=== PATIENT | female | born 1945 | race Caucasian/White ===

== ENCOUNTER 2017-08-22 12:13 | Emergency (ER) | payer MEDICARE, OTHER ==
[2017-08-22 12:17] VITALS: BP 146/65; PULSE 98; RESP 22; TEMP 98; O2SAT 98
--- NOTE | 2017-08-22 12:24 | PD ---
HPI Chief Complaint: Respiratory Symptoms Time Seen by Provider: 12:23 Travel History International Travel<30 days: No Contact w/Intl Traveler<30days: No Traveled to known affect area: No History of Present Illness HPI 72 YO F with PMH of COPD presents to the ED for evaluation of 1 week history of worsening cough, dyspnea on exertion and decreased O2 sats. The patient does not use oxygen at home. She notes that her cough is productive of light yellow sputum. She states that when she coughs in the morning her O2 sats dropped but if she is able to bring up a small amount of sputum that they return to approximately 92%. She states her normal O2 sats are 94% and above. She denies hemoptysis, fever, chills, chest pain, palpitations, abdominal pain, nausea, vomiting, dysuria, lower extremity edema. She notes a pain in her right shoulder blade which she states is similar to an episode of PNA last year. The patient states that she was in multiple health care settings recently with her mother who . She states that she has a nodule in each long which is being followed by her television newscast director, Dr. Juarez. She states her last CT was in February. PFSH Past Medical History Hx Anticoagulant Therapy: Yes (81 mg ASA daily) Social History Tobacco Use: No Allergies-Medications (Allergen,Severity, Reaction): Coded Allergies: Penicillins (Verified Allergy, Intermediate, 08/22/17) rash codeine (Verified Adverse Reaction, Unknown, 08/22/17) nausea/vomiting Reported Meds & Prescriptions Reported Meds & Active Scripts Active Azithromycin 250 Mg Tab 250 Mg PO DIRECTED Take 2 tabs (500 mg) on day 1 then 1 tab daily x 4 days. Prednisone 20 Mg Tab 40 Mg PO DAILY Take 40 mg (2 tablets) daily for 5 days Reported Vitamin B-12 (Cyanocobalamin) 1,000 Mcg Tab 5,000 Mcg PO EVERY OTHER DAY Vitamin D-1000 (Cholecalciferol) 1,000 Unit Tab 1,000 Units PO EVERY OTHER DAY Aspirin 81 Mg Chew 81 Mg CHEW DAILY Ipratropium Neb (Ipratropium [place]) 0.5 Mg/2.5 Ml Amp 0.5 Mg NEB Q4HR NEB PRN Omeprazole 40 Mg Cap 40 Mg PO DAILY Pramipexole (Pramipexole Dihydrochloride) 0.25 Mg Tab 0.25 Mg PO HS Ventolin Hfa 18 GM Inh (Albuterol Sulfate) 90 Mcg/Act Aer 1 Puff INH Q4H PRN Symbicort Inh (Budesonide/Formoterol Fumarate) 80-4.5 Mcg/Act Aero 2 Puff INH Q12HR Metoclopramide (Metoclopramide HCl) 10 Mg Tab 10 Mg PO BID Trazodone (Trazodone HCl) 150 Mg Tablet 150 Mg PO HS Review of Systems Except as stated in HPI: all other systems reviewed are Neg Physical Exam Narrative GENERAL: Well-nourished, well-developed pleasant white female in no acute distress. SKIN: Focused skin assessment warm/dry. HEAD: Normocephalic. EYES: No scleral icterus. No injection or drainage. NECK: Supple, trachea midline. No JVD or lymphadenopathy. CARDIOVASCULAR: Regular rate and rhythm without murmurs, gallops, or rubs. RESPIRATORY: Breath sounds equal, coarse, with wheezes bilaterally. No accessory muscle use. GASTROINTESTINAL: Abdomen soft, non-tender, nondistended. Active bowel sounds. MUSCULOSKELETAL: No cyanosis, or edema. BACK: Nontender without obvious deformity. No CVA tenderness. Data Data Last Documented VS Vital Signs Date Time Temp Pulse Resp B/P (MAP) Pulse Ox O2 Delivery O2 Flow Rate FiO2 08/22/17 12:47 9 24 97 Nasal Cannula 2.00 08/22/17 12:30 08/22/17 12:17 98.0 Orders Orders Complete Blood Count With Diff (08/22/17 12:32) Comprehensive Metabolic Panel (08/22/17 12:32) B-Type Natriuretic Peptide (08/22/17 12:32) D-Dimer (08/22/17 12:32) Act Partial Throm Time (Ptt) (08/22/17 12:32) Prothrombin Time / Inr (Pt) (08/22/17 12:32) Magnesium (Mg) (08/22/17 12:32) Ckmb (Isoenzyme) Profile (08/22/17 12:32) Troponin I (08/22/17 12:32) Iv Access Insert/Monitor (08/22/17 12:32) Electrocardiogram (08/22/17 12:32) Ecg Monitoring (08/22/17 12:32) Oximetry (08/22/17 12:32) Chest, Single Ap (08/22/17 12:32) Sodium Chloride 0.9% Flush (Ns Flush) (08/22/17 12:45) Methylprednisolone So Succ Inj (Solumedr (08/22/17 12:45) Albuterol-Ipratropium Neb (Duoneb Neb) (08/22/17 12:45) Albuterol-Ipratropium Neb (Duoneb Neb) (08/22/17 14:30) Ed Discharge Order (08/22/17 15:32) Labs Laboratory Tests Test 08/22/17 13:00 White Blood Count 13.0 TH/MM3 Red Blood Count 4.45 MIL/MM3 Hemoglobin 13.7 GM/DL Hematocrit 41.3 % Mean Corpuscular Volume 92.8 FL Mean Corpuscular Hemoglobin 30.8 PG Mean Corpuscular Hemoglobin Concent 33.2 % Red Cell Distribution Width 13.2 % Platelet Count 275 TH/MM3 Mean Platelet Volume 7.3 FL Neutrophils (%) (Auto) 62.8 % Lymphocytes (%) (Auto) 21.0 % Monocytes (%) (Auto) 7.4 % Eosinophils (%) (Auto) 7.9 % Basophils (%) (Auto) 0.9 % Neutrophils # (Auto) 8.2 TH/MM3 Lymphocytes # (Auto) 2.7 TH/MM3 Monocytes # (Auto) 1.0 TH/MM3 Eosinophils # (Auto) 1.0 TH/MM3 Basophils # (Auto) 0.1 TH/MM3 CBC Comment DIFF FINAL Differential Comment Prothrombin Time 10.1 SEC Prothromb Time International Ratio 0.9 RATIO Activated Partial Thromboplast Time 23.2 SEC D-Dimer Quantitative (PE/DVT) 0.28 MG/L FEU Blood Urea Nitrogen 11 MG/DL Creatinine 0.57 MG/DL Random Glucose 97 MG/DL Total Protein 7.3 GM/DL Albumin 3.9 GM/DL Calcium Level 8.9 MG/DL Magnesium Level 2.0 MG/DL Alkaline Phosphatase 118 U/L Aspartate Amino Transf (AST/SGOT) 11 U/L Alanine Aminotransferase (ALT/SGPT) 21 U/L Total Bilirubin 0.3 MG/DL Sodium Level 136 MEQ/L Potassium Level 3.8 MEQ/L Chloride Level 104 MEQ/L Carbon Dioxide Level 22.6 MEQ/L Anion Gap 9 MEQ/L Estimat Glomerular Filtration Rate 105 ML/MIN Total Creatine Kinase 74 U/L Troponin I LESS THAN 0.02 NG/ML B-Type Natriuretic Peptide 14 PG/ML MDM Medical Decision Making Medical Screen Exam Complete: Yes Emergency Medical Condition: Yes Differential Diagnosis COPD exacerbation versus PNA versus PE versus CHF versus lung CA versus ACS versus other Narrative Course 72-year-old female with PMH of COPD presents to the ED for evaluation of worsening cough and shortness of breath. Cough is occasionally productive of yellow sputum. No accompanying chest pain, palpitations, diaphoresis, nausea, vomiting. Patient is afebrile, O2 sats 98% on room air on presentation. Physical exam reveals a nontoxic-appearing white female in no acute distress. She does have coarse breath sounds with wheezes bilaterally but the exam is otherwise unremarkable. IV was established. Patient was administered IM Solu- Medrol, DuoNeb 3. Wells Criteria, low. EKG rate 87, sinus rhythm. CO interval 162, QRS 81, QTc 387. Normal axis. No ST changes. Reviewed by Dr. Denise. CXR: Hyperinflation and underlying emphysema without evidence of pneumonia per radiology read. CBC: WBC 13.0. Hemoglobin 13.7 CMP: No concerning abnormalities Cardiac enzymes: Negative 1 DDimer: 0.28 BNP: 14 On recheck the patient reports improvement of her symptoms. However, after going to the bathroom she returned and O2 sats were in the mid to high 80s. We' ll administer another DuoNeb and reevaluate. On reevaluation patient states that she does not want to be admitted to the ED. We'll provide a course of azithromycin and steroids. She is instructed to follow-up with her television newscast director. She states she has an appointment on the but will attempt to move it up. We discussed reasons to return to the ED. She is stable and discharged home. Diagnosis Primary Impression: COPD exacerbation Referrals: Divina Juarez MD Patient Instructions: General Instructions, Nutrition Guidelines for People with COPD (ED) Additional Instructions: Rest, hydrate. Resume at home medications as previously prescribed. Take antibiotics as prescribed, until they are all gone. Take prednisone as prescribed. Follow-up with Dr. Juarez this week as discussed. Return to the ED for any urgent or emergent medical condition. Med/Other Pt SpecificInfo: Prescription(s) given Scripts Azithromycin (Azithromycin) 250 Mg Tab 250 MG PO DIRECTED for Infection, #6 TAB 0 Refills Take 2 tabs (500 mg) on day 1 then 1 tab daily x 4 days. Prov: Felix Denise MD 08/22/17 Prednisone (Prednisone) 20 Mg Tab 40 MG PO DAILY, #10 TAB 0 Refills Take 40 mg (2 tablets) daily for 5 days Prov: Felix Denise MD 08/22/17 Disposition: 01 DISCHARGE HOME Condition: Stable Suni Cage Aug 22, 2017 12:24
[2017-08-22 12:30] VITALS: O2SAT 95
[2017-08-22] MEDS ORDERED: SYMB80AE INH (12:42)
[2017-08-22] MEDS ORDERED: IPRA0.02 NEB (12:42)
[2017-08-22] MEDS ORDERED: PRAM0.25 PO (12:42)
[2017-08-22] MEDS ORDERED: TRAZ1TAB14 PO (12:42)
[2017-08-22] MEDS ORDERED: OMEP40CA2 PO (12:42)
[2017-08-22] MEDS ORDERED: METO10TA PO (12:42)
[2017-08-22] MEDS ORDERED: VITA1000 PO (12:42)
[2017-08-22] MEDS ORDERED: ASPI-516 CHEW (12:42)
[2017-08-22] MEDS ORDERED: VITA10002 PO (12:42)
[2017-08-22] MEDS ORDERED: VENTAER INH (12:42)
[2017-08-22] MEDS ORDERED: SODIUM CHLORIDE 0.9% FLUSH 10 ML FLUSH IVF PRN (12:45)
[2017-08-22] MEDS ORDERED: methylPREDNISolone SOD SUCC 125 MG/2 ML VIAL IV PUSH ONE (12:45)
[2017-08-22] MEDS: RESP: ALBUTEROL 2.5 MG/IPRATROPIUM 0.5 MG NEB (SCH) INH (12:56)
--- NOTE | 2017-08-22 12:59 | RADRPT ---
EXAM DATE/TIME: 08/22/2017 12:42 [facility] COMPARISON: No previous studies available for comparison. INDICATIONS : Shortness of breath. MEDICAL HISTORY : Chronic obstructive pulmonary disease. Carcinoma, breast. SURGICAL HISTORY : Mastectomy, left. ENCOUNTER: Initial ACUITY: 3 days PAIN SCORE: 0/10 LOCATION: Bilateral chest FINDINGS: A single view of the chest demonstrates the lungs to be symmetrically hyperinflated without evidence of mass, infiltrate or effusion. The cardiomediastinal contours are unremarkable. Osseous structure s are intact. CONCLUSION: Hyperinflation and underlying emphysema. There is no evidence of pneumonia. Piotr Camargo MD on August 22, 2017 at 12:52 Board Certified Radiologist. This report was verified electronically.
[2017-08-22 13:28] LABS: AUTOMATED NEUTROPHIL # 8.2 TH/MM3 (1.8-7.7); BASOPHIL # 0.1 TH/MM3 (0-0.2); BASOPHIL % 0.9 % (0.0-2.0); EOSINOPHIL % 7.9 % (0.0-4.0); HEMATOCRIT 41.3 % (35.0-46.0); HEMO FLAGS DIFF FINAL; LYMPHOCYTE # 2.7 TH/MM3 (1.0-4.8); MEAN CELL VOLUME 92.8 FL (80.0-100.0); MEAN CORPUSCULAR HEMOGLOBIN 30.8 PG (27.0-34.0); MEAN CORPUSCULAR HGB CONC 33.2 % (32.0-36.0); MONO % 7.4 % (0.0-8.0); NEUT % 62.8 % (16.0-70.0); PLATELET COUNT 275 TH/MM3 (150-450); RED BLOOD COUNT 4.45 MIL/MM3 (4.00-5.30); RED CELL DISTRIBUTION WIDTH 13.2 % (11.6-17.2)
[2017-08-22 13:30] VITALS: BP 144/62; PULSE 86; RESP 19; O2SAT 97
[2017-08-22 13:38] LABS: ANION GAP 9 MEQ/L (5-15); AST (GOT) 11 U/L (15-37); BICARBONATE 22.6 MEQ/L (21.0-32.0); BLOOD UREA NITROGEN 11 MG/DL (7-18); CHLORIDE 104 MEQ/L (98-107); GLOMERULAR FILTRATION RATE 105 ML/MIN (>89); POTASSIUM 3.8 MEQ/L (3.5-5.1); SODIUM (NA) 136 MEQ/L (136-145)
[2017-08-22 13:42] LABS: APTT (PATIENT) 23.2 SEC (24.3-30.1); INTERNATIONAL NORMALIZED RATIO 0.9 RATIO; PROTHROMBIN TIME - PATIENT 10.1 SEC (9.8-11.6)
[2017-08-22 13:43] LABS: ALKALINE PHOSPHATASE 118 U/L (45-117); ALT (GPT) 21 U/L (10-53); TOTAL BILIRUBIN ADULT 0.3 MG/DL (0.2-1.0)
[2017-08-22 13:49] LABS: CREATINE KINASE 74 U/L (26-192)
[2017-08-22] MEDS ORDERED: PRED20 PO (13:57)
[2017-08-22] MEDS ORDERED: AZIT250T3 PO (14:19)
--- NOTE | 2017-08-22 14:19 | PD ---
Data Data Last Documented VS Vital Signs Date Time Temp Pulse Resp B/P (MAP) Pulse Ox O2 Delivery O2 Flow Rate FiO2 08/22/17 12:47 9 24 97 Nasal Cannula 2.00 08/22/17 12:30 08/22/17 12:17 98.0 Orders Orders Complete Blood Count With Diff (08/22/17 12:32) Comprehensive Metabolic Panel (08/22/17 12:32) B-Type Natriuretic Peptide (08/22/17 12:32) D-Dimer (08/22/17 12:32) Act Partial Throm Time (Ptt) (08/22/17 12:32) Prothrombin Time / Inr (Pt) (08/22/17 12:32) Magnesium (Mg) (08/22/17 12:32) Ckmb (Isoenzyme) Profile (08/22/17 12:32) Troponin I (08/22/17 12:32) Urinalysis - C+S If Indicated (08/22/17 12:32) Iv Access Insert/Monitor (08/22/17 12:32) Electrocardiogram (08/22/17 12:32) Ecg Monitoring (08/22/17 12:32) Oximetry (08/22/17 12:32) Chest, Single Ap (08/22/17 12:32) Sodium Chloride 0.9% Flush (Ns Flush) (08/22/17 12:45) Methylprednisolone So Succ Inj (Solumedr (08/22/17 12:45) Albuterol-Ipratropium Neb (Duoneb Neb) (08/22/17 12:45) Labs Laboratory Tests Test 08/22/17 13:00 White Blood Count 13.0 TH/MM3 Red Blood Count 4.45 MIL/MM3 Hemoglobin 13.7 GM/DL Hematocrit 41.3 % Mean Corpuscular Volume 92.8 FL Mean Corpuscular Hemoglobin 30.8 PG Mean Corpuscular Hemoglobin Concent 33.2 % Red Cell Distribution Width 13.2 % Platelet Count 275 TH/MM3 Mean Platelet Volume 7.3 FL Neutrophils (%) (Auto) 62.8 % Lymphocytes (%) (Auto) 21.0 % Monocytes (%) (Auto) 7.4 % Eosinophils (%) (Auto) 7.9 % Basophils (%) (Auto) 0.9 % Neutrophils # (Auto) 8.2 TH/MM3 Lymphocytes # (Auto) 2.7 TH/MM3 Monocytes # (Auto) 1.0 TH/MM3 Eosinophils # (Auto) 1.0 TH/MM3 Basophils # (Auto) 0.1 TH/MM3 CBC Comment DIFF FINAL Differential Comment Prothrombin Time 10.1 SEC Prothromb Time International Ratio 0.9 RATIO Activated Partial Thromboplast Time 23.2 SEC D-Dimer Quantitative (PE/DVT) 0.28 MG/L FEU Blood Urea Nitrogen 11 MG/DL Creatinine 0.57 MG/DL Random Glucose 97 MG/DL Total Protein 7.3 GM/DL Albumin 3.9 GM/DL Calcium Level 8.9 MG/DL Magnesium Level 2.0 MG/DL Alkaline Phosphatase 118 U/L Aspartate Amino Transf (AST/SGOT) 11 U/L Alanine Aminotransferase (ALT/SGPT) 21 U/L Total Bilirubin 0.3 MG/DL Sodium Level 136 MEQ/L Potassium Level 3.8 MEQ/L Chloride Level 104 MEQ/L Carbon Dioxide Level 22.6 MEQ/L Anion Gap 9 MEQ/L Estimat Glomerular Filtration Rate 105 ML/MIN Total Creatine Kinase 74 U/L Troponin I LESS THAN 0.02 NG/ML B-Type Natriuretic Peptide 14 PG/ML MDM Supervised Visit with JOHN: Yes Narrative Course The history, exam, and medical decision-making in the associated mid-level provider note were completed with my assistance. I reviewed and agree with the findings presented. I attest that I had a [id number] encounter with the patient on the same day, and personally performed and documented my assessment and findings in the medical record. *My assessment and Findings: 72-year-old woman presents emergency Department with COPD exacerbation. Symptoms been ongoing for several days. She's had pneumonia couple times the past. Distress. Is been worsening for the past several days. Chest x-ray shows no pneumonia. She is improved after bronchodilators. We'll continue treatment for COPD exacerbation with bronchodilators, steroids, antibiotics, and outpatient follow-up. Diagnosis Primary Impression: COPD exacerbation Referrals: Divina Juarez MD Patient Instructions: General Instructions, Nutrition Guidelines for People with COPD (ED) Additional Instruction: Rest, hydrate. Resume at home medications as previously prescribed. Take prednisone as prescribed. Follow-up with Dr. Juarez this week as discussed. Return to the ED for any urgent or emergent medical condition. Scripts Prednisone (Prednisone) 20 Mg Tab 40 MG PO DAILY, #10 TAB 0 Refills Take 40 mg (2 tablets) daily for 5 days Prov: Felix Denise MD 08/22/17 Disposition: 01 DISCHARGE HOME Condition: Stable Felix Denise MD Aug 22, 2017 14:19
[2017-08-22] MEDS ORDERED: RESP: ALBUTEROL 2.5 MG/IPRATROPIUM 0.5 MG NEB (SCH) INH ONE (14:30)
[2017-08-22 15:30] VITALS: BP 140/63; PULSE 90; RESP 25; O2SAT 87; O2SAT 90
--- NOTE | 2017-08-23 13:24 | EKG ---
Date Performed: 08/22/2017 Time Performed: 12:57:05 PTAGE: 72 years EKG: Sinus rhythm NORMAL ECG NO PREVIOUS TRACING DOCTOR: Terell Yu Interpretating Date/Time 08/23/2017 13:17:06
== END 2017-08-22 15:54 | disposition home or self-care (01) ==
LOC: NEPC 12:13
DX: J44.1 Chronic obstructive pulmonary disease with (acute) exacerbation (principal); Z79.82 Long term (current) use of aspirin; Z79.899 Other long term (current) drug therapy; Z88.0 Allergy status to penicillin; Z88.5 Allergy status to narcotic agent
CPT/HCPCS: 71010; 80053; 82550; 83735; 83880; 84484; 85025; 85379; 85610; 85730; 93005; 94640; 94664; 96374; 99285; J2930

== ENCOUNTER 2017-10-16 16:33 | Emergency (ER) | payer OTHER ==
[~2017-10-16] VITALS: Ht 165.1 cm; Wt 65.5 kg
[~2017-10-16 16:33] MED LIST: ASPI-516 CHEW; AZIT250T3 PO; IPRA0.02 NEB; METO10TA PO; OMEP40CA2 PO; PRAM0.25 PO; PRED20 PO; SYMB80AE INH; TRAZ1TAB14 PO; VENTAER INH; VITA1000 PO; VITA10002 PO
[2017-10-16 16:45] VITALS: BP 143/93; PULSE 99; RESP 16; TEMP 98.4; O2SAT 92
--- NOTE | 2017-10-16 17:20 | PD ---
HPI Chief Complaint: Injury Time Seen by Provider: 17:14 Travel History International Travel<30 days: No Contact w/Intl Traveler<30days: No Traveled to known affect area: No History of Present Illness HPI 72-year-old female presents to emergency department complaining of left knee pain for a few days. States that she just got out of bed and started having pain in the joint line. She describes a plant and turn injury as she was getting out of bed. Denies inciting events or trauma. Denies history of gout. States the pain is located mostly to the lateral aspect and increases with walking and decreases with rest. Patient does have full range of motion of her knee. No numbness or tingling. States she has never had this problem before. Has not followed up with her primary care physician regarding this problem. PFSH Past Medical History Hx Anticoagulant Therapy: Yes (81 mg ASA daily) Cancer: Yes (left breast) COPD: Yes Diminished Hearing: No GERD: Yes Respiratory: Yes (copd) Ulcer: Yes ?: Not Past Surgical History Appendectomy: Yes Cholecystectomy: Yes Gynecologic Surgery: Yes Hysterectomy: Yes Tonsillectomy: Yes Other Surgery: Yes (left breast mastectomy) Social History Alcohol Use: No Tobacco Use: Yes ('OCCASIONALLY") Substance Use: No Allergies-Medications (Allergen,Severity, Reaction): Coded Allergies: Penicillins (Verified Allergy, Intermediate, RASH, 10/16/17) rash codeine (Verified Adverse Reaction, Unknown, GI UPSET, 10/16/17) nausea/vomiting Reported Meds & Prescriptions Reported Meds & Active Scripts Active Reported Vitamin B-12 (Cyanocobalamin) 1,000 Mcg Tab 5,000 Mcg PO EVERY OTHER DAY Vitamin D-1000 (Cholecalciferol) 1,000 Unit Tab 1,000 Units PO EVERY OTHER DAY Aspirin 81 Mg Chew 81 Mg CHEW DAILY Ipratropium Neb (Ipratropium [place]) 0.5 Mg/2.5 Ml Amp 0.5 Mg NEB Q4HR NEB PRN Omeprazole 40 Mg Cap 40 Mg PO DAILY Pramipexole (Pramipexole Dihydrochloride) 0.25 Mg Tab 0.25 Mg PO HS Ventolin Hfa 18 GM Inh (Albuterol Sulfate) 90 Mcg/Act Aer 1 Puff INH Q4H PRN Symbicort Inh (Budesonide/Formoterol Fumarate) 80-4.5 Mcg/Act Aero 2 Puff INH Q12HR Metoclopramide (Metoclopramide HCl) 10 Mg Tab 10 Mg PO BID Trazodone (Trazodone HCl) 150 Mg Tablet 150 Mg PO HS Review of Systems Except as stated in HPI: all other systems reviewed are Neg Physical Exam Narrative GENERAL: Well-developed well-nourished in no apparent distress SKIN: Focused skin assessment warm/dry. HEAD: Atraumatic. Normocephalic. EYES: Pupils equal and round. No scleral icterus. No injection or drainage. NECK: Trachea midline. No JVD. CARDIOVASCULAR: Regular rate and rhythm. No murmur appreciated. RESPIRATORY: No accessory muscle use. Clear to auscultation. Breath sounds equal bilaterally. MUSCULOSKELETAL: No obvious deformities. No clubbing. No cyanosis. No edema. TTP to medial and lateral aspect of knee. Full range of motion of knee without clicks or pops. DTRs intact. No erythema or edema noted. Neurovascularly intact. Negative anterior and posterior drawer. Homans sign negative bilaterally NEUROLOGICAL: Awake and alert. No obvious cranial nerve deficits. Motor grossly within normal limits. Normal speech. PSYCHIATRIC: Appropriate mood and affect; insight and judgment normal. Data Data Last Documented VS Vital Signs Date Time Temp Pulse Resp B/P (MAP) Pulse Ox O2 Delivery O2 Flow Rate FiO2 10/16/17 16:45 98.4 99 16 143/93 (110) 92 Orders Orders Splint Or Brace Apply/Monitor (10/16/17 17:20) Ed Discharge Order (10/16/17 17:20) [facility] Medical Decision Making Medical Screen Exam Complete: Yes Emergency Medical Condition: Yes Differential Diagnosis Left knee sprain, strain, contusion Narrative Course 72-year-old female presents to emergency department complaining of left knee pain for a few days. States that she just got out of bed and started having pain in the joint line. She describes a plant and turn injury as she was getting out of bed. Denies inciting events or trauma. Denies history of gout. States the pain is located mostly to the lateral aspect and increases with walking and decreases with rest. Patient does have full range of motion of her knee. No numbness or tingling. States she has never had this problem before. Has not followed up with her primary care physician regarding this problem. Vital signs stable. History and physical consistent with a meniscal versus ligamental injury. No ecchymosis, edema. No evidence of trauma. Knee Julio Cesar wrapped for comfort. Advised patient should follow-up with orthopedics and or primary care physician for imaging and further evaluation. Reassured patient. Patient to use Tylenol or Motrin per package instructions. Return to the emergency department for worsening or persistent symptoms. Diagnosis Primary Impression: Knee sprain Qualified Codes: S83.92XA - Sprain of unspecified site of left knee, initial encounter Referrals: Orthopedist Additional Instructions: Use ice or heat for symptom relief. Elevate the joint above the heart to reduce swelling. You may use compression with Julio Cesar wrap or similar to reduce swelling. If symptoms persist or worsen, return to the emergency department. Follow up with your primary care physician within 2 days. Disposition: 01 DISCHARGE HOME Condition: Stable Dana Suarez Oct 16, 2017 17:20
== END 2017-10-16 17:30 | disposition home or self-care (01) ==
LOC: PHEFT 16:33
DX: S83.92XA Sprain of unspecified site of left knee, initial encounter (principal); J44.9 Chronic obstructive pulmonary disease, unspecified; K21.9 Gastro-esophageal reflux disease without esophagitis; X58.XXXA Exposure to other specified factors, initial encounter; Z72.0 Tobacco use; Z79.82 Long term (current) use of aspirin; Z79.899 Other long term (current) drug therapy; Z88.0 Allergy status to penicillin; Z88.5 Allergy status to narcotic agent
CPT/HCPCS: 99282

== ENCOUNTER 2018-03-16 18:52 | Emergency (ER) | payer OTHER ==
[~2018-03-16] VITALS: Ht 165.1 cm; Wt 66.4 kg
[~2018-03-16 18:52] MED LIST changes: -AZIT250T3 PO; -PRED20 PO
[2018-03-16 18:56] VITALS: BP 155/71; PULSE 100; RESP 20; TEMP 98; O2SAT 92
--- NOTE | 2018-03-16 19:34 | PD ---
HPI Chief Complaint: Abdominal Pain Time Seen by Provider: 19:31 Travel History International Travel<30 days: No Contact w/Intl Traveler<30days: No Traveled to known affect area: No History of Present Illness HPI 33-year-old male presents to the emergency department with 1 month of abdominal discomfort with worsening symptoms 1 week. Patient feels distended and right upper quadrant tenderness. Patient status post cholecystectomy and previous ulcer surgery. Patient has history of COPD previous breast cancer with left mastectomy. Patient admits to tobacco use denies alcohol use. No weight loss. Has had nausea without early satiety no vomiting and denies diarrhea or constipation but has had change in bowel movements. No hematemesis coffee- ground emesis melena or hematochezia. Patient is continued to have good urine output and no flank pain. No fever or chills. Patient is unable to identify exacerbating or alleviating factors. PFSH Past Medical History Narrative Medical Medical record and nursing notes reviewed Hx Anticoagulant Therapy: Yes (81 mg ASA daily) Cancer: Yes (left breast) COPD: Yes Diminished Hearing: No GERD: Yes Respiratory: Yes Ulcer: Yes Influenza Vaccination: No ?: Not Past Surgical History Appendectomy: Yes Cholecystectomy: Yes Gynecologic Surgery: Yes Hysterectomy: Yes Tonsillectomy: Yes Other Surgery: Yes (left breast mastectomy) Social History Alcohol Use: No Tobacco Use: Yes ('OCCASIONALLY") Substance Use: No Allergies-Medications (Allergen,Severity, Reaction): Coded Allergies: Penicillins (Verified Allergy, Intermediate, RASH, 03/16/18) rash codeine (Verified Adverse Reaction, Unknown, GI UPSET, 03/16/18) nausea/vomiting Reported Meds & Prescriptions Reported Meds & Active Scripts Active Reported Mucus Relief ER (Guaifenesin) 600 Mg Tab 400 Mg PO BID PRN Trazodone (Trazodone HCl) 300 Mg Tab 500 Mg PO HS Vitamin B-12 (Cyanocobalamin) 1,000 Mcg Tab 5,000 Mcg PO EVERY OTHER DAY Vitamin D-1000 (Cholecalciferol) 1,000 Unit Tab 1,000 Units PO EVERY OTHER DAY Aspirin 81 Mg Chew 81 Mg CHEW DAILY Ipratropium Neb (Ipratropium [place]) 0.5 Mg/2.5 Ml Amp 0.5 Mg NEB Q4HR NEB PRN Omeprazole 40 Mg Cap 40 Mg PO DAILY Pramipexole (Pramipexole Dihydrochloride) 0.25 Mg Tab 0.25 Mg PO HS Ventolin Hfa 18 GM Inh (Albuterol Sulfate) 90 Mcg/Act Aer 1 Puff INH Q4H PRN Symbicort Inh (Budesonide/Formoterol Fumarate) 80-4.5 Mcg/Act Aero 2 Puff INH Q12HR Metoclopramide (Metoclopramide HCl) 10 Mg Tab 10 Mg PO BID Review of Systems Except as stated in HPI: all other systems reviewed are Neg Physical Exam Narrative GENERAL: Well-developed well-nourished pleasant female no acute distress or respiratory distress SKIN: Warm and dry. HEAD: Normocephalic. EYES: No scleral icterus. No injection or drainage. NECK: Supple, trachea midline. No JVD or lymphadenopathy. CARDIOVASCULAR: Regular rate and rhythm without murmurs, gallops, or rubs. RESPIRATORY: Breath sounds equal bilaterally. No accessory muscle use. GASTROINTESTINAL: Abdomen soft, non-tender, nondistended. MUSCULOSKELETAL: No cyanosis, or edema. BACK: Nontender without obvious deformity. No CVA tenderness. Data Data Last Documented VS Vital Signs Date Time Temp Pulse Resp B/P (MAP) Pulse Ox O2 Delivery O2 Flow Rate FiO2 03/16/18 20:52 87 16 139/72 (94) 95 Room Air 03/16/18 18:56 98.0 Orders Orders Complete Blood Count With Diff (03/16/18 19:31) Comprehensive Metabolic Panel (03/16/18 19:31) Lipase (03/16/18 19:31) Urinalysis - C+S If Indicated (03/16/18 19:31) Ct Abd/Pel W Iv Contrast(Rout) (03/16/18 19:31) Iv Access Insert/Monitor (03/16/18 19:31) Ecg Monitoring (03/16/18 19:31) Oximetry (03/16/18 19:31) Sodium Chloride 0.9% Flush (Ns Flush) (03/16/18 19:45) Iohexol 350 Inj (Omnipaque 350 Inj) (03/16/18 20:44) Labs Laboratory Tests Test 03/16/18 20:04 03/16/18 20:08 White Blood Count 10.9 TH/MM3 Red Blood Count 4.56 MIL/MM3 Hemoglobin 13.2 GM/DL Hematocrit 40.2 % Mean Corpuscular Volume 88.0 FL Mean Corpuscular Hemoglobin 28.9 PG Mean Corpuscular Hemoglobin Concent 32.8 % Red Cell Distribution Width 13.6 % Platelet Count 282 TH/MM3 Mean Platelet Volume 7.3 FL Neutrophils (%) (Auto) 58.6 % Lymphocytes (%) (Auto) 24.5 % Monocytes (%) (Auto) 6.3 % Eosinophils (%) (Auto) 10.0 % Basophils (%) (Auto) 0.6 % Neutrophils # (Auto) 6.3 TH/MM3 Lymphocytes # (Auto) 2.7 TH/MM3 Monocytes # (Auto) 0.7 TH/MM3 Eosinophils # (Auto) 1.1 TH/MM3 Basophils # (Auto) 0.1 TH/MM3 CBC Comment DIFF FINAL Differential Comment Blood Urea Nitrogen 14 MG/DL Creatinine 0.66 MG/DL Random Glucose 112 MG/DL Total Protein 7.4 GM/DL Albumin 3.7 GM/DL Calcium Level 9.2 MG/DL Alkaline Phosphatase 131 U/L Aspartate Amino Transf (AST/SGOT) 22 U/L Alanine Aminotransferase (ALT/SGPT) 18 U/L Total Bilirubin 0.3 MG/DL Sodium Level 136 MEQ/L Potassium Level 5.3 MEQ/L Chloride Level 104 MEQ/L Carbon Dioxide Level 24.7 MEQ/L Anion Gap 7 MEQ/L Estimat Glomerular Filtration Rate 88 ML/MIN Lipase 92 U/L Urine Color YELLOW Urine Turbidity CLEAR Urine pH 5.5 Urine Specific [place] 1.020 Urine Protein NEG mg/dL Urine Glucose (UA) NEG mg/dL Urine Ketones NEG mg/dL Urine Occult Blood NEG Urine Nitrite NEG Urine Bilirubin NEG Urine Urobilinogen 0.2 MG/DL Urine Leukocyte Esterase SMALL Urine RBC 0-3 /hpf Urine WBC 6-8 /hpf Urine Squamous Epithelial Cells 6-8 /hpf Urine Bacteria OCC /hpf Microscopic Urinalysis Comment CULT NOT INDICATED MDM Medical Decision Making Medical Screen Exam Complete: Yes Emergency Medical Condition: Yes Medical Record Reviewed: Yes Interpretation(s) UA: cx not indicated Last Impressions Abdomen/Pelvis CT 03/16/181930 Signed Impressions: CONCLUSION: 1. COPD 2. Status post cholecystectomy and hysterectomy. 3. No evidence of acute process, suspicious mass or lymphadenopathy. CBC & BMP Diagram 03/16/18 20:04 Total Protein 7.4, Albumin 3.7, Calcium Level 9.2, Alkaline Phosphatase 131 H, Aspartate Amino Transf (AST/SGOT) 22, Alanine Aminotransferase (ALT/SGPT) 18, Total Bilirubin 0.3 Vital Signs Date Time Temp Pulse Resp B/P (MAP) Pulse Ox O2 Delivery O2 Flow Rate FiO2 03/16/18 20:52 87 16 139/72 (94) 95 Room Air 03/16/18 20:22 94 Room Air 03/16/18 19:18 18 03/16/18 18:56 98.0 100 20 155/71 (99) 92 Differential Diagnosis Abdominal pain ascites cirrhosis BENNETT pancreatitis malignancy Narrative Course IV access obtained specimens collected and sent for resulting CT abdomen pelvis ordered; patient denies any pain or nausea at this time. Diagnosis Primary Impression: Abdominal pain Qualified Codes: R10.84 - Generalized abdominal pain Additional Impression: COPD (chronic obstructive pulmonary disease) Referrals: Bow Machine Operator 1 month keep scheduled appointment as planned or sooner as needed Primary Care Physician call for appointment Patient Instructions: General Instructions Additional Instructions: Increase/encourage fluid hydration Add probiotic food supplement to dietary intake Return to the emergency department for any concerns or change in condition Continue chronic medications as presently prescribed Follow-up with your primary care provider call office to schedule follow-up appointment and keep scheduled appointment with vacuum frame operator as planned Med/Other Pt SpecificInfo: No Change to Meds Disposition: 01 DISCHARGE HOME Condition: Stable Debora Galaviz MD March 16, 2018 19:34
[2018-03-16] MEDS ORDERED: SODIUM CHLORIDE 0.9% FLUSH 10 ML FLUSH IV FLUSH PRN (19:45)
[2018-03-16 20:11] LABS: AUTOMATED NEUTROPHIL # 6.3 TH/MM3 (1.8-7.7); BASOPHIL # 0.1 TH/MM3 (0-0.2); BASOPHIL % 0.6 % (0.0-2.0); EOSINOPHIL # 1.1 TH/MM3 (0-0.4); HEMATOCRIT 40.2 % (35.0-46.0); HEMOGLOBIN 13.2 GM/DL (11.6-15.3); LYMPH % 24.5 % (9.0-44.0); LYMPHOCYTE # 2.7 TH/MM3 (1.0-4.8); MEAN CORPUSCULAR HEMOGLOBIN 28.9 PG (27.0-34.0); MEAN CORPUSCULAR HGB CONC 32.8 % (32.0-36.0); MEAN PLATELET VOLUME 7.3 FL (7.0-11.0); MONO % 6.3 % (0.0-8.0); MONOCYTE # 0.7 TH/MM3 (0-0.9); NEUT % 58.6 % (16.0-70.0); PLATELET COUNT 282 TH/MM3 (150-450); RED BLOOD COUNT 4.56 MIL/MM3 (4.00-5.30); RED CELL DISTRIBUTION WIDTH 13.6 % (11.6-17.2); WHITE BLOOD COUNT 10.9 TH/MM3 (4.0-11.0)
[2018-03-16 20:17] LABS: CHLORIDE 104 MEQ/L (98-107); SODIUM (NA) 136 MEQ/L (136-145)
[2018-03-16 20:21] LABS: ALBUMIN 3.7 GM/DL (3.4-5.0); BICARBONATE 24.7 MEQ/L (21.0-32.0); BLOOD UREA NITROGEN 14 MG/DL (7-18); CALCIUM 9.2 MG/DL (8.5-10.1); GLUCOSE,RANDOM 112 MG/DL (74-106)
[2018-03-16 20:22] VITALS: O2SAT 94
[2018-03-16 20:24] LABS: ALT (GPT) 18 U/L (10-53); AST (GOT) 22 U/L (15-37); CREATININE 0.66 MG/DL (0.50-1.00); GLOMERULAR FILTRATION RATE 88 ML/MIN (>89)
[2018-03-16 20:25] LABS: TOTAL BILIRUBIN ADULT 0.3 MG/DL (0.2-1.0)
[2018-03-16 20:25] LABS: BILIRUBIN, URINE NEG (NEG); BLOOD, URINE NEG (NEG); GLUCOSE,URINE NEG (NEG); KETONE, URINE NEG (NEG); NITRITE,URINE NEG (NEG); PH, URINE 5.5 (5.0-8.5); URINE COLOR YELLOW (YELLW/STRAW); URINE LEUKOCYTE ESTERASE SMALL (NEG)
[2018-03-16 20:26] LABS: TOTAL PROTEIN 7.4 GM/DL (6.4-8.2)
[2018-03-16 20:27] LABS: ALKALINE PHOSPHATASE 131 U/L (45-117)
[2018-03-16] MEDS ORDERED: GUAI600T11 PO (20:27)
[2018-03-16] MEDS ORDERED: TRAZ300T2 PO (20:27)
[2018-03-16 20:34] LABS: BACTERIA, URINE OCC /hpf; RBC, URINE 0-3 /hpf (0-3)
[2018-03-16] MEDS ORDERED: IOHEXOL 350 MG/ML 10 ML VIAL (for RAD DIAG) IVCONTRAST ONE (20:44)
--- NOTE | 2018-03-16 20:49 | RADRPT ---
EXAM DATE: 03/16/2018 8:43 PM EDT AGE/SEX: 73 years / Female INDICATIONS: Right upper quadrant pain and abdominal distention x 1 month, worse over past week. Na usea. CLINICAL DATA: This is the patient's initial encounter. Patient reports that signs and symptoms have been present for 1 month and indicates a pain score of 2/10. MEDICAL/SURGICAL HISTORY: Carcinoma, breast. Gastroesophageal reflux disease. Chronic obstruc tive pulmonary disease. Ulcer. Mastectomy, left. Appendectomy. Cholecystectomy. Hysterectomy. ORAL CONTRAST: No oral contrast ingested. RADIATION DOSE: 7.75 CTDI (mGy) COMPARISON: No prior [facility] exams available for comparison. TECHNIQUE: Multiple contiguous axial images were obtained through the abdomen and pelvis following b olus infusion of 90 ml Omnipaque 350 (iohexol) nonionic water-soluble contrast as a single exam dos e. No oral contrast ingested. Using automated exposure control and adjustment of the mA and/or kV ac cording to patient size, the radiation dose was kept as low as reasonably achievable to obtain optima l diagnostic quality images. FINDINGS: Lower Lungs: Lung bases are hyperinflated characteristic of COPD. Liver: The liver has a homogeneous density without space-occupying lesion. There is no dilation of th e biliary tree. Spleen: Homogeneous density without enlargement. Pancreas: Unremarkable without mass or calcification. Kidneys: Normal in size and shape. No evidence of mass or hydronephrosis. Adrenal Glands: Unremarkable. Aorta: The aorta and proximal iliac vessels are grossly unremarkable without aneurysmal dilation. Bowel/Mesentery: The bowel loops are grossly unremarkable. The cecum and sigmoid colon have a normal configuration. Abdominal Wall: Intact. Retroperitoneum: No evidence of adenopathy in the retrocrural, para-aortic, or deep pelvic regions. Bladder: Contours are smooth. Reproductive Organs: Uterus has been removed. No abnormal masses or calcifications seen. Inguinal: The inguinal region is unremarkable without evidence of adenopathy. Bony Structures: Unremarkable. Post Contrast: No abnormal areas of enhancement seen. CONCLUSION: 1. COPD 2. Status post cholecystectomy and hysterectomy. 3. No evidence of acute process, suspicious mass or lymphadenopathy. Electronically signed by: Rohan Mcgovern MD 03/16/2018 8:47 PM EDT
[2018-03-16 20:52] VITALS: BP 139/72; PULSE 87; RESP 16; O2SAT 95
[2018-03-16 22:03] VITALS: BP 145/77
== END 2018-03-16 22:08 | disposition home or self-care (01) ==
LOC: PHEFT 18:52
DX: R10.84 Generalized abdominal pain (principal); J44.9 Chronic obstructive pulmonary disease, unspecified; K21.9 Gastro-esophageal reflux disease without esophagitis; Z85.3 Personal history of malignant neoplasm of breast; Z90.12 Acquired absence of left breast and nipple; Z72.0 Tobacco use
CPT/HCPCS: 74177; 80053; 81001; 83690; 85025; 99284; Q9967

== ENCOUNTER 2018-04-07 17:46 | Emergency (ER) | payer OTHER ==
[~2018-04-07] VITALS: Ht 165.1 cm; Wt 97.7 kg
[~2018-04-07 17:46] MED LIST changes: +GUAI600T11 PO; -TRAZ1TAB14 PO; +TRAZ300T2 PO
[2018-04-07 17:49] VITALS: BP 185/76; PULSE 96; RESP 20; TEMP 97.7; O2SAT 95
[2018-04-07] MEDS ORDERED: SODIUM CHLORIDE 0.9% FLUSH 10 ML FLUSH IVF PRN (18:15)
[2018-04-07] MEDS ORDERED: SODIUM CHLORID 0.9% 500 ML INJ 500 ML IV ONE (18:15)
[2018-04-07] MEDS ORDERED: ACETAMINOPHEN/HYDROcodone 325 MG/5 MG TAB PO ONE (18:30)
--- NOTE | 2018-04-07 18:59 | PD ---
HPI Chief Complaint: Musculoskeletal Complaint Time Seen by Provider: 17:54 Travel History International Travel<30 days: No Contact w/Intl Traveler<30days: No Traveled to known affect area: No History of Present Illness HPI This 73-year-old woman who presents to the emergency department complaining of cough right-sided rib pain. She states that she was sick with bronchitis symptoms for the past couple weeks. She finished her antibiotics and steroids about 5 days ago. She felt significantly improved shortly after starting treatment. She has a history of COPD. 2 days ago she had a coughing fit that was a little bit more violent and she felt significant pain on her right flank and ribs. She believes that this was probably associate with specific event although it is a little bit unclear. She states it is worse with movement and deep breathing. It has been excruciating at times. She feels like overall her breathing is improved. She is not short of breath. Denies any other new or worsening symptoms. History Past Medical History Narrative Medical COPD GERD Osteoporosis Influenza Vaccination: No Social History Alcohol Use: No Tobacco Use: Yes ('OCCASIONALLY") Allergies-Medications (Allergen,Severity, Reaction): Coded Allergies: Penicillins (Verified Allergy, Intermediate, RASH, 03/16/18) rash codeine (Verified Adverse Reaction, Unknown, GI UPSET, 03/16/18) nausea/vomiting Reported Meds & Prescriptions Reported Meds & Active Scripts Active Reported Mucus Relief ER (Guaifenesin) 600 Mg Tab 400 Mg PO BID PRN Trazodone (Trazodone HCl) 300 Mg Tab 500 Mg PO HS Vitamin B-12 (Cyanocobalamin) 1,000 Mcg Tab 5,000 Mcg PO EVERY OTHER DAY Vitamin D-1000 (Cholecalciferol) 1,000 Unit Tab 1,000 Units PO EVERY OTHER DAY Aspirin 81 Mg Chew 81 Mg CHEW DAILY Ipratropium Neb (Ipratropium [place]) 0.5 Mg/2.5 Ml Amp 0.5 Mg NEB Q4HR NEB PRN Omeprazole 40 Mg Cap 40 Mg PO DAILY Pramipexole (Pramipexole Dihydrochloride) 0.25 Mg Tab 0.25 Mg PO HS Ventolin Hfa 18 GM Inh (Albuterol Sulfate) 90 Mcg/Act Aer 1 Puff INH Q4H PRN Symbicort Inh (Budesonide/Formoterol Fumarate) 80-4.5 Mcg/Act Aero 2 Puff INH Q12HR Metoclopramide (Metoclopramide HCl) 10 Mg Tab 10 Mg PO BID Review of Systems Except as stated in HPI: all other systems reviewed are Neg Physical Exam Narrative GENERAL: Well-appearing 73-year-old woman, no acute distress. SKIN: Focused skin assessment warm/dry. I do not see any zosters rash. Is a little bit tenderness to palpation. HEAD: Atraumatic. Normocephalic. EYES: Pupils equal and round. No scleral icterus. No injection or drainage. ENT: No nasal bleeding or discharge. Mucous membranes pink and moist. NECK: Trachea midline. No JVD. CARDIOVASCULAR: Regular rate and rhythm. No murmur appreciated. RESPIRATORY: No accessory muscle use. Clear to auscultation. Breath sounds equal bilaterally. GASTROINTESTINAL: Abdomen soft, non-tender, nondistended. Hepatic and splenic margins not palpable. MUSCULOSKELETAL: No obvious deformities. No edema. NEUROLOGICAL: Awake and alert. No obvious cranial nerve deficits. Motor grossly within normal limits. Normal speech. PSYCHIATRIC: Appropriate mood and affect; insight and judgment normal. Data Data Last Documented VS Vital Signs Date Time Temp Pulse Resp B/P (MAP) Pulse Ox O2 Delivery O2 Flow Rate FiO2 04/07/18 19:23 16 04/07/18 17:49 97.7 96 185/76 (112) 95 Orders Orders Electrocardiogram (04/07/18 18:12) Complete Blood Count With Diff (04/07/18 18:12) Comprehensive Metabolic Panel (04/07/18 18:12) D-Dimer (04/07/18 18:12) Troponin I (04/07/18 18:12) Iv Access Insert/Monitor (04/07/18 18:12) Sodium Chloride 0.9% Flush (Ns Flush) (04/07/18 18:15) Sodium Chlorid 0.9% 500 Ml Inj (Ns 500 M (04/07/18 18:15) Ribs, Uni (W/Exp Cxr-Min 3vw) (04/07/18 ) Acetamin-Hydrocod 325-5 Mg ([place] 5-325 (04/07/18 18:30) Vascular Access Team Consult/P PRN (04/07/18 19:13) Vascular Poc Ultrasound (04/07/18 ) Labs Laboratory Tests Test 04/07/18 19:32 White Blood Count 12.6 TH/MM3 Red Blood Count 4.37 MIL/MM3 Hemoglobin 12.6 GM/DL Hematocrit 38.1 % Mean Corpuscular Volume 87.2 FL Mean Corpuscular Hemoglobin 28.8 PG Mean Corpuscular Hemoglobin Concent 33.0 % Red Cell Distribution Width 14.5 % Platelet Count 472 TH/MM3 Mean Platelet Volume 7.6 FL Neutrophils (%) (Auto) 76.5 % Lymphocytes (%) (Auto) 14.6 % Monocytes (%) (Auto) 5.9 % Eosinophils (%) (Auto) 2.5 % Basophils (%) (Auto) 0.5 % Neutrophils # (Auto) 9.7 TH/MM3 Lymphocytes # (Auto) 1.8 TH/MM3 Monocytes # (Auto) 0.7 TH/MM3 Eosinophils # (Auto) 0.3 TH/MM3 Basophils # (Auto) 0.1 TH/MM3 CBC Comment DIFF FINAL Differential Comment D-Dimer Quantitative (PE/DVT) 0.43 MG/L FEU Blood Urea Nitrogen 15 MG/DL Creatinine 0.63 MG/DL Random Glucose 88 MG/DL Total Protein 7.3 GM/DL Albumin 3.9 GM/DL Calcium Level 9.0 MG/DL Alkaline Phosphatase 118 U/L Aspartate Amino Transf (AST/SGOT) 16 U/L Alanine Aminotransferase (ALT/SGPT) 16 U/L Total Bilirubin 0.3 MG/DL Sodium Level 135 MEQ/L Potassium Level 4.2 MEQ/L Chloride Level 102 MEQ/L Carbon Dioxide Level 24.3 MEQ/L Anion Gap 9 MEQ/L Estimat Glomerular Filtration Rate 93 ML/MIN Troponin I LESS THAN 0.02 NG/ML [facility] Medical Decision Making Medical Screen Exam Complete: Yes Emergency Medical Condition: Yes Interpretation(s) My review of EKG: Normal sinus rhythm at a rate of 79. Normal axis, normal levels, no acute ischemia. LABS: CBC remarkable for mild leukocytosis CMP is unremarkable. Troponins negative. D-dimer 0.43 Rib series: No fracture Differential Diagnosis Rib fracture, contusion, pneumothorax, PE, other Narrative Course Medical decision making 73-year-old woman presents to the emergency department a complaining of some flank and rib pain. Symptoms started after coughing. Pain with deep breathing. The history is not completely clear that this is post coughing or post traumatic. At risk for PE. Will check d-dimer, labs, rib series. Diagnosis Primary Impression: Rib pain Patient Instructions: General Instructions Additional Instructions: His Lortab sparingly as needed for pain. Follow-up with your primary doctor in 2-4 days if not improved. Return to the emergency department for any new or worsening symptoms. Med/Other Pt SpecificInfo: Prescription(s) given Scripts Hydrocodone-Acetaminophen (Hydrocodone-Acetaminophen) 5-325 mg Tab 1 TAB PO Q6H Y for PAIN, #6 TAB 0 Refills Prov: Felix Denise MD 04/07/18 Disposition: 01 DISCHARGE HOME Condition: Stable Felix Denise MD Apr 07, 2018 18:59
[2018-04-07 19:23] VITALS: RESP 16
--- NOTE | 2018-04-07 19:38 | RADRPT ---
EXAM DATE: 04/07/2018 7:32 PM EDT AGE/SEX: 73 years / Female INDICATIONS: Heavy coughing. Pain and discomfort right lower ribs. CLINICAL DATA: This is the patient's initial encounter. Patient reports that signs and symptoms have been present for 1 day and indicates a pain score of 8/10. MEDICAL/SURGICAL HISTORY: Chronic obstructive pulmonary disease. Osteoporosis. None. COMPARISON: [facility] [place], CHEST SINGLE AP, 08/22/2017. . FINDINGS: There is no evidence of displaced fracture. No destructive lesions or areas of periosteal thickening are seen. Expiratory view of the chest is negative for pneumothorax. The mediastinal structures ar e midline. CONCLUSION: No acute fracture. Postoperative left mastectomy with axillary surgical clips present. Emphysema. Electronically signed by: Abundio Chavis MD 04/07/2018 7:37 PM EDT
[2018-04-07 19:45] LABS: AUTOMATED NEUTROPHIL # 9.7 TH/MM3 (1.8-7.7); BASOPHIL # 0.1 TH/MM3 (0-0.2); BASOPHIL % 0.5 % (0.0-2.0); EOSINOPHIL # 0.3 TH/MM3 (0-0.4); EOSINOPHIL % 2.5 % (0.0-4.0); HEMATOCRIT 38.1 % (35.0-46.0); HEMOGLOBIN 12.6 GM/DL (11.6-15.3); LYMPH % 14.6 % (9.0-44.0); LYMPHOCYTE # 1.8 TH/MM3 (1.0-4.8); MEAN CELL VOLUME 87.2 FL (80.0-100.0); MEAN CORPUSCULAR HEMOGLOBIN 28.8 PG (27.0-34.0); MEAN PLATELET VOLUME 7.6 FL (7.0-11.0); MONO % 5.9 % (0.0-8.0); MONOCYTE # 0.7 TH/MM3 (0-0.9); NEUT % 76.5 % (16.0-70.0); PLATELET COUNT 472 TH/MM3 (150-450); RED BLOOD COUNT 4.37 MIL/MM3 (4.00-5.30); RED CELL DISTRIBUTION WIDTH 14.5 % (11.6-17.2); WHITE BLOOD COUNT 12.6 TH/MM3 (4.0-11.0)
[2018-04-07 19:57] LABS: CHLORIDE 102 MEQ/L (98-107); SODIUM (NA) 135 MEQ/L (136-145)
[2018-04-07 20:01] LABS: ALBUMIN 3.9 GM/DL (3.4-5.0); BICARBONATE 24.3 MEQ/L (21.0-32.0); BLOOD UREA NITROGEN 15 MG/DL (7-18); GLUCOSE,RANDOM 88 MG/DL (74-106)
[2018-04-07 20:04] LABS: ALT (GPT) 16 U/L (10-53); AST (GOT) 16 U/L (15-37); CREATININE 0.63 MG/DL (0.50-1.00); GLOMERULAR FILTRATION RATE 93 ML/MIN (>89)
[2018-04-07 20:05] LABS: TOTAL BILIRUBIN ADULT 0.3 MG/DL (0.2-1.0); TOTAL PROTEIN 7.3 GM/DL (6.4-8.2)
[2018-04-07 20:07] LABS: ALKALINE PHOSPHATASE 118 U/L (45-117)
[2018-04-07 20:08] LABS: TROPONIN I LESS THAN 0.02 NG/ML (0.02-0.05)
[2018-04-07] MEDS ORDERED: HYDR-3516 PO (20:12)
[2018-04-07 20:37] VITALS: BP 160/73
--- NOTE | 2018-04-08 23:07 | EKG ---
Date Performed: 04/07/2018 Time Performed: 18:20:26 PTAGE: 73 years EKG: Sinus rhythm NORMAL ECG PREVIOUS TRACING : 08/22/2017 12.57 DOCTOR: Benja Evangelista Interpretating Date/Time 04/08/2018 22:58:48
== END 2018-04-07 20:39 | disposition home or self-care (01) ==
LOC: PHED 17:46
DX: R07.81 Pleurodynia (principal); R05 Cough; J44.9 Chronic obstructive pulmonary disease, unspecified; M81.0 Age-related osteoporosis without current pathological fracture; Z88.0 Allergy status to penicillin; Z88.5 Allergy status to narcotic agent
CPT/HCPCS: 71101; 80053; 84484; 85025; 85379; 93005; 96360; 99285; J7040